=== PATIENT | female | born 1995 | race Caucasian/White ===

== ENCOUNTER 2020-09-12 12:05 | Inpatient (IN) | payer BC ==
[2020-09-13] MEDS ORDERED: CARBOPROST TROMETHAMINE 250 MCG/ML 1 ML AMP IM PRN (06:23)
[2020-09-13] MEDS ORDERED: LIDOCAINE 0.5% (PF) 5 MG/ML (50 ML SDV) SQ PRN (06:23)
[2020-09-13] MEDS ORDERED: TERBUTALINE 1 MG/ML VIAL SQ PRN (06:23)
[2020-09-13] MEDS ORDERED: OXYTOCIN 10 UNIT/ML 1 ML VIAL IM PRN (06:23)
[2020-09-13] MEDS ORDERED: METHYLERGONOVINE 0.2 MG/ML 1 ML AMP IM PRN (06:23)
[2020-09-13] MEDS: OXYTOCIN 30 UNITS/500 ML NS 30 UNIT in SALINE 1 500ML.BAG IV SCH (06:46)
[2020-09-13] MEDS: LACTATED RINGERS 1,000 ML IV SCH ×4 (06:46→21:45)
[2020-09-13 07:04] LABS: Basophils # (A) 0.1 k/uL (0-0.2); Basophils % (A) 1 %; Eosinophils # (A) 0.1 k/uL (0-0.7); Eosinophils % (A) 1 %; HCT 39.9 % (34.0-46.0); HGB 13.1 gm/dL (11.4-16.0); Lymphocytes # (A) 2.5 k/uL (1.0-4.8); Lymphocytes % (A) 19 %; MCH 28.3 pg (25.0-35.0); MCHC 32.7 g/dL (31.0-37.0); MCV 86.4 fL (80.0-100.0); Mean Platelet Volume 9.3; Monocytes # (A) 0.6 k/uL (0-1.0); Monocytes % (A) 4 %; Neutrophils # (A) 9.6 k/uL (1.3-7.7); Neutrophils % (A) 74 %; Platelet Count 258 k/uL (150-450); RBC 4.62 m/uL (3.80-5.40); RDW 14.1 % (11.5-15.5)
[2020-09-13] MEDS ORDERED: BUTORPHANOL 1 MG/ML 1 ML VIAL IV PRN (07:30)
[2020-09-13] MEDS ORDERED: PRENATAL VIT-IRON-FOLIC ACID 1 EACH CAP PO ONE (07:45)
[2020-09-13] MEDS ORDERED: AMPICILLIN 2,000 MG in SODIUM CHLORIDE 0.9% 100 ML IVPB STA (20:38)
[2020-09-13] MEDS ORDERED: CITRIC ACID-SODIUM CITRATE 15 ML CUP PO ONE (22:40)
[2020-09-13] MEDS ORDERED: IBUPROFEN IV 800 MG in SODIUM CHLORIDE 0.9% 250 ML IV ONE (22:47)
[2020-09-13] MEDS ORDERED: ONDANSETRON 4 MG/2 ML VIAL IVP PRN (23:41)
[2020-09-13] MEDS ORDERED: NALOXONE 0.4 MG/ML 1 ML VIAL IV PRN (23:41)
[2020-09-13] MEDS ORDERED: diphenhydrAMINE 50 MG/ML 1 ML VIAL IVP PRN (23:41)
[2020-09-13] MEDS ORDERED: MORPHINE SULFATE 2 MG/ML SYRINGE IVP PRN (23:41)
--- NOTE | 2020-09-13 23:58 | P.HPOB ---
History of Present Illness H&P Date: 09/13/20 Chief Complaint: IUP @ 40 1/7 weeks This is a 25-year-old 1 para 0 at 40-1/7 weeks that presents to labor and delivery for induction of labor secondary to postdates. Patient has been receiving routine. Care was then essentially uncompensated. Patient notes good movement this morning, denies contractions, vaginal bleeding or loss of fluid. On blood work shows a blood type of O+, rubella immune, hepatitis B surface antigen negative, RPR nonreactive, GBS negative. Review of Systems Constitutional: Denies chills, Denies fatigue, Denies fever Ears, nose, mouth and throat: Denies headache Cardiovascular: Reports leg edema Respiratory: Denies dyspnea Gastrointestinal: Denies constipation, Denies diarrhea, Denies nausea, Denies vomiting Genitourinary: Reports Past Medical History Past Medical History: No Reported History History of Any Multi-Drug Resistant Organisms: None Reported Past Surgical History: Tonsillectomy Additional Past Surgical History / Comment(s): Knee arthroscopy at 17 y.o. Past Anesthesia/Blood Transfusion Reactions: No Reported Reaction Past Psychological History: No Psychological Hx Reported Smoking Status: Never smoker Past Alcohol Use History: None Reported Past Drug Use History: None Reported - Past Family History Father Family Medical History: Diabetes Mellitus Medications and Allergies Home Medications Medication Instructions Recorded Confirmed Type Pnv No.95/Ferrous Fum/Folic AC 1 tab PO ONCE 09/13/20 09/13/20 History [ Multivitamin Tablet] Allergies Allergy/AdvReac Type Severity Reaction Status Date / Time codeine AdvReac Nausea & Verified 09/13/20 06:21 Vomiting Exam Osteopathic Statement: *. No significant issues noted on an osteopathic structural exam other than those noted in the History and Physical/Consult. 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 Amniotomy was performed and clear fluid was obtained. Results Result Diagrams: 09/13/20 06:42 Abnormal Lab Results - Last 24 Hours (Table) 09/13/20 Range/Units 06:42 WBC 13.0 H (3.8-10.6) k/uL Neutrophils # 9.6 H (1.3-7.7) k/uL Assessment and Plan (1) Post-dates Current Visit: Yes Status: Acute Code(s): O48.0 - POST-TERM SNOMED Code(s): 56276608 Plan: Patient is admitted to labor and delivery for planned Pitocin induction of labor. Options for analgesia during labor discussed and Mauricio Stadol and epidural. Patient states understanding and will request when needed. We'll monitor closely with monitoring and external toco.
--- NOTE | 2020-09-14 00:01 | P.OP ---
Date of Procedure: 09/13/20 Preoperative Diagnosis: IUP at 40-1/7 weeks, arrest of descent Postoperative Diagnosis: Same Procedure(s) Performed: Primary low transverse section Anesthesia: epidural Surgeon: Nubia Domingo Pigment Pumper #1: Yeison García Estimated Blood Loss (ml): 640 IV fluids (ml): 700 Urine output (ml): 450 Pathology: other (Placenta) Condition: stable Disposition: observation Indications for Procedure: This pleasant 25-year-old 1 para 0 at 40 and one sevenths weeks presented to labor and delivery at 6 AM for planned induction of labor. Patient has made minimal change throughout labor. Patient at 2230 was noted to be 6/70/-2 with no descent throughout the day of the head being noted. Decision for primary was discussed with patient secondary to lack of descent of the head, patient states understanding, all questions are answered at this time. Operative Findings: Normal uterus tubes and ovaries were appreciated viable male delivered at 2335, weight of 7 lbs. 5 oz. and Apgars of 99 at one and 5 minutes respectively. Description of Procedure: Patient is taken back to the operating room where epidural anesthesia was found be adequate by the anesthesia department. She was prepped and draped in normal sterile fashion in the dorsal supine position. A Pfannenstiel skin incision was made with the scalpel and carried through the underlying layer of fascia. The fascia was then incised in the midline and extended laterally. The superior aspect of the fascial incision was then grasped with Hanna clamps, elevated and underlying rectus muscles dissected off sharply. Attention was then turned the inferior aspect of the fascial incision which was then grasped with Hanna clamps, elevated and underlying rectus muscle was dissected off sharply. The rectus muscles were in the midline the peritoneum was identified and entered. The bladder blade was then inserted into the pelvis. The vesico uterine peritoneum was identified and the bladder flap was created using sharp and blunt dissection. Hysterotomy incision was made with the scalpel the was then encountered in a vertex presentation and delivered in the usual fashion. The umbilical cord was doubly clamped and cut. The was handed off to awaiting RN. Cord blood was then taken. The placenta was then removed manually and the uterus was cleared of all clots and debris. Uterine incision was then closed with 0 Vicryl in a running locked fashion. A second layer of suture was used to obtain hemostasis. Hemostasis was appreciated. The gutters were cleared of all clots and debris. The uterus then returned to the abdomen. The hysterotomy incision was inspected and found to be hemostatic. The peritoneum was then loosely reapproximate. The rectus muscles were inspected and found to be hemostatic. The fascia was then closed with 0 Vicryl in a running fashion from one lateral edge the other. The subcutaneous tissue was irrigated and found to be hemostatic. It was closed with 3-0 Vicryl in running fashion. The skin was then closed with 4-0 Vicryl in a subcuticular fashion. All counts were noted to be correct 2 at the end of the procedure. Patient and infant tolerated delivery well and are resting comfortably.
[2020-09-14] MEDS ORDERED: OXYTOCIN 20 UNITS/1000 ML NS 1,000 ML IV SCH (00:02)
[2020-09-14] MEDS ORDERED: HYDROcodone/APAP 5-325MG 1 EACH TAB PO PRN (00:02)
[2020-09-14] MEDS ORDERED: ACETAMINOPHEN TAB 325 MG TAB PO PRN (00:02)
[2020-09-14] MEDS ORDERED: ONDANSETRON 4 MG/2 ML VIAL IVP PRN (00:02)
[2020-09-14] MEDS ORDERED: ACETAMINOPHEN IV (For NPO) 1,000 MG in EMPTY BAG 1 BAG IVPB ONE (00:02)
[2020-09-14] MEDS ORDERED: SIMETHICONE 80 MG CHEWABLE PO PRN (00:02)
[2020-09-14] MEDS ORDERED: NALOXONE 0.4 MG/ML 1 ML VIAL IV PRN (00:02)
[2020-09-14] MEDS ORDERED: ZOLPIDEM 5 MG TAB PO PRN (00:02)
[2020-09-14] MEDS ORDERED: diphenhydrAMINE 25 MG CAP PO PRN (00:02)
[2020-09-14] MEDS ORDERED: diphenhydrAMINE 50 MG/ML 1 ML VIAL IVP PRN ×2 (00:02)
[2020-09-14] MEDS ORDERED: diphenhydrAMINE 50 MG CAP PO PRN (00:02)
[2020-09-14] MEDS ORDERED: METOCLOPRAMIDE 5 MG/ML 2 ML VIAL IVP PRN (00:02)
[2020-09-14] MEDS ORDERED: AMPICILLIN 1,000 MG in SODIUM CHLORIDE 0.9% 50 ML IVPB SCH (00:45)
[2020-09-14 07:29] LABS: Basophils % (A) 0 %; Eosinophils % (A) 0 %; HCT 32.4 % (34.0-46.0); HGB 10.9 gm/dL (11.4-16.0); Lymphocytes # (A) 2.6 k/uL (1.0-4.8); Lymphocytes % (A) 14 %; MCH 29.1 pg (25.0-35.0); MCHC 33.6 g/dL (31.0-37.0); MCV 86.6 fL (80.0-100.0); Mean Platelet Volume 9.5; Monocytes # (A) 0.8 k/uL (0-1.0); Monocytes % (A) 4 %; Neutrophils # (A) 14.3 k/uL (1.3-7.7); Neutrophils % (A) 80 %; Platelet Count 211 k/uL (150-450); RBC 3.74 m/uL (3.80-5.40); RDW 14.2 % (11.5-15.5); WBC 17.8 k/uL (3.8-10.6)
[2020-09-14] MEDS: SENNOSIDES-DOCUSATE SODIUM 1 EACH TAB PO SCH ×2 (08:58→19:35)
[2020-09-14] MEDS: IBUPROFEN 600 MG TAB PO PRN ×3 (11:38→23:31)
--- NOTE | 2020-09-14 13:00 | P.PNOBGPC ---
Subjective - Subjective Principal diagnosis: POD 1 LTCS Interval history: he states her pain is well-controlled. She is tearful is afternoon as delivery does not go as expected. Infant is doing well. Her lochia is minimal. She is tolerating a regular diet without nausea or vomiting. Patient reports: Reports appetite normal, Reports voiding normally, Reports pain well controlled, Reports ambulating normally : doing well Objective - Vital Signs Latest vital signs: Vital Signs Temp Pulse Resp BP Pulse Ox 09/14/20 12:00 98.2 F 92 15 124/62 100 09/14/20 10:00 18 09/14/20 08:00 97.4 F L 90 16 113/67 99 09/14/20 06:00 16 09/14/20 04:56 99.0 F 92 16 124/64 09/14/20 04:41 100 09/14/20 04:00 16 09/14/20 02:41 16 09/14/20 02:04 103 H 16 108/70 98 09/14/20 01:32 98.4 F 100 16 101/65 98 09/14/20 01:04 96 16 114/67 98 09/14/20 00:49 93 16 107/65 98 09/14/20 00:37 16 98 09/14/20 00:34 102 H 16 109/66 98 09/14/20 00:19 105 H 16 113/67 98 09/14/20 00:04 97.2 F L 109 H 16 137/74 98 09/13/20 23:41 16 98 Intake and Output 09/13/20 09/14/20 09/14/20 22:59 06:59 14:59 Output Total 157 232 4410 Balance -700 -600 -1600 Output: Urine 266 604 1811 Uretheral (Ramirez) 600 Other: Voiding Method Indwelling Catheter # Voids 1 1 - Exam Extremities: Present: normal, edema Abdomen: Present: normal appearance Incision: Present: normal, intact Uterus: Present: normal, firm - Labs Labs: Abnormal Lab Results - Last 24 Hours (Table) 09/14/20 Range/Units 07:03 WBC 17.8 H (3.8-10.6) k/uL RBC 3.74 L (3.80-5.40) m/uL Hgb 10.9 L (11.4-16.0) gm/dL Hct 32.4 L (34.0-46.0) % Neutrophils # 14.3 H (1.3-7.7) k/uL Assessment and Plan (1) Post-dates Current Visit: Yes Status: Acute Code(s): O48.0 - POST-TERM SNOMED Code(s): 30264440 (2) S/P section Current Visit: Yes Status: Acute Code(s): Z98.891 - HISTORY OF UTERINE SCAR FROM PREVIOUS SURGERY SNOMED Code(s): 749773546 (3) Arrest of descent, delivered, current hospitalization Current Visit: Yes Status: Acute Code(s): O62.1 - SECONDARY UTERINE INERTIA SNOMED Code(s): 14874146 Plan: Patient is doing well post operatively. Reassurance is given regarding the delivery, she states understanding but is disappointed. We'll monitor mood closely. Anticipate discharge home tomorrow.
--- NOTE | 2020-09-14 13:15 | P.PN ---
Progress Note - Text 09/14 645am 25 year old female s/p csection with duramorph. pt seen this morning, she is doing well with a vas of 2. no other complaints.
[2020-09-14] MEDS: OXYTOCIN 30 UNITS/500 ML NS 30 UNIT in SALINE 1 500ML.BAG IV SCH (21:00)
[2020-09-14] MEDS: LACTATED RINGERS 1,000 ML IV SCH ×2 (21:00)
[2020-09-15] MEDS: IBUPROFEN 600 MG TAB PO PRN ×2 (06:23→12:24)
[2020-09-15] MEDS: SENNOSIDES-DOCUSATE SODIUM 1 EACH TAB PO SCH (07:51)
--- NOTE | 2020-09-15 08:19 | P.DS ---
Providers Date of admission: 09/13/20 06:08 Expected date of discharge: 09/15/20 Attending physician: Nubia Domingo Primary care physician: Stated None - Discharge Diagnosis(es) (1) Post-dates Current Visit: Yes Status: Acute (2) S/P section Current Visit: Yes Status: Acute (3) Arrest of descent, delivered, current hospitalization Current Visit: Yes Status: Acute Hospital Course: This is a 25-year-old 1 para 0 at 40-1/7 weeks that presented to labor and delivery for planned induction of labor secondary to postdates. Patient was noted to be 3 cm on admission. Amniotomy was performed clear fluid was obtained. Patient made slow progress through labor, patient was noted to stall at 6-7 cm for many hours and subsequently being counseled on primary for arrest of descent and dilation. Patient although frustrated stated understanding. Patient was taken for primary without issue, for further details on the please see the operative report. Patient's postoperative course has been essentially uneventful. On this postop day #2 she is ambulating and voiding without difficulty she is tolerating a regular diet without nausea or vomiting. She states her lochia is minimal. She denies concerns. Her mood is somewhat flat, and we will watch closely for signs of post depression. I did discuss this with dad as well. She is breast-feeding without issue. Patient Condition at Discharge: Good Plan - Discharge Summary New Discharge Prescriptions: No Action Pnv No.95/Ferrous Fum/Folic AC [ Multivitamin Tablet] 1 tab PO ONCE Discharge Medication List Pnv No.95/Ferrous Fum/Folic AC [ Multivitamin Tablet] 1 tab PO ONCE 09/13/20 [History] Follow up Appointment(s)/Referral(s): Nubia Domingo DO [Doctor of Osteopathic Medicine] - 2 Weeks Patient Instructions/Handouts: (DC), (GEN), Depression (DC), Depression (GEN) Discharge Disposition: HOME SELF-CARE
[2020-09-15 16:23] VITALS: BP 116/78; PULSE 89; RESP 16; TEMP 98.5
== END 2020-09-15 18:15 | disposition home or self-care (01) | DRG 788 ==
LOC: 4FBP 09-13 06:08
PROVIDERS: ADMIT Obstetrics & Gynecology Obstetrics; ATTEND Obstetrics & Gynecology Obstetrics
PROC: 10D00Z1 Extraction of Products of Conception, Low, Open Approach (ICD-10-PCS; principal; 2020-09-13 23:00)
DX: O62.1 Secondary uterine inertia (principal); Z37.0 Single live birth; Z3A.40 40 weeks gestation of pregnancy; Z83.3 Family history of diabetes mellitus; Z90.89 Acquired absence of other organs; Z88.5 Allergy status to narcotic agent
CPT/HCPCS: 85025; 86850; 86900; 86901

== ENCOUNTER → 2021-09-24 | Outpatient (CLI) | payer BC ==
--- NOTE | 2021-09-25 10:34 | US ---
EXAMINATION TYPE: US thyroid st tissue head/neck DATE OF EXAM: 09/24/2021 COMPARISON: NONE CLINICAL HISTORY: R22.1 Swelling mass lump. Patient states she feels a lump anterior right neck. Has not changed in size. Area of concern scanned. Lymph node visualized with short axis = 0.5 cm. Contralateral images taken . IMPRESSION: 1. Small lymph node in the area of a palpable abnormality right neck
== END | disposition home or self-care (01) ==
LOC: RADUSWWP 16:21
PROVIDERS: ATTEND Family Medicine
DX: R22.1 Localized swelling, mass and lump, neck (principal)
CPT/HCPCS: 76536